=== PATIENT | female | born 1980 | race Caucasian/White ===

== ENCOUNTER 2023-08-30 08:23 | Inpatient (IN) | payer OTHER ==
[~2023-08-30] VITALS: Ht 165.1 cm; Wt 65.3 kg
[~2023-08-30 08:23] MED LIST: COR12 PO; HYDR25TA78 PO; INSU100I28 SQ
[2023-08-30 09:14] LABS: HEMATOCRIT. 26.9 % (36.0-48.0); HEMOGLOBIN. 8.7 g/dL (12.0-16.0); MEAN CORPUSCULAR HEMOGLOBIN 30.3 pg (28.0-32.0); MEAN CORPUSCULAR HGB CONC 32.3 g/dL (31.0-37.0); MEAN CORPUSCULAR VOLUME 93.7 fL (81.0-99.0); MEAN PLATELET VOLUME 9.4 fl (7.4-10.4); PLATELET 208 x1000/uL (130-400); RED BLOOD CELL COUNT 2.87 mill/uL (4.2-5.4); RED CELL DISTRIBUTION WIDTH 15.9 % (11.6-14.6)
[2023-08-30] MEDS: ACETAMINOPHEN 325MG TABLET PO STA (09:18)
[2023-08-30 09:35] LABS: D-DIMER 5.98 mg/L FEU (<0.50); INR 0.9; PROTHROMBIN TIME 10.5 sec (9.6-11.0)
[2023-08-30 09:39] LABS: DIFFERENTIAL COMMENT 1
[2023-08-30 09:59] LABS: HCG SCREEN NEGATIVE
[2023-08-30 10:05] LABS: ALANINE AMINOTRANSFERASE 79 IU/L (10-49); ALBUMIN 3.6 g/dL (3.2-4.8); ASPARTATE AMINOTRANSFERASE 78 IU/L (<34); BILIRUBIN TOTAL 0.2 mg/dL (0.1-1.0); CALCIUM 8.1 mg/dL (8.7-10.4); CARBON DIOXIDE 30 mEq/L (21-32); CHLORIDE 99 mEq/L (98-107); GLUCOSE 198 mg/dL (70-105); POTASSIUM 3.4 mEq/L (3.5-5.1); SODIUM 133 mEq/L (136-145); UREA NITROGEN BLOOD 17 mg/dL (9-23)
[2023-08-30 10:07] LABS: CREATININE 2.3 mg/dL (0.6-1.0)
[2023-08-30 10:09] LABS: TROPONIN I HIGH SENSITIVITY 35 ng/L (3.0-34)
[2023-08-30 10:19] VITALS: RESP 36
[2023-08-30] MEDS ORDERED: NITROGLYCERIN 50MG PREMIX 250 ML IV PRN (11:00)
[2023-08-30 11:09] LABS: PLATELET ESTIMATE NORMAL
[2023-08-30 11:12] LABS: ANISOCYTOSIS 2+
[2023-08-30] MEDS: NITROGLYCERIN 50MG PREMIX 250 ML IV PRN (11:56)
[2023-08-30] MEDS: FUROSEMIDE 40MG/4ML VIAL IVP SCH (12:45)
[2023-08-30] MEDS: ASPIRIN 325MG EC TABLET PO SCH (12:45)
[2023-08-30] MEDS ORDERED: IPRATROPIUM/ALBUTEROL 0.5-3(2.5)MG/3ML NEB HHN PRN (16:00)
[2023-08-30] MEDS: MORPHINE SULFATE 2 MG/ML CPJ (NOT FOR IM USE) IV NR (16:45)
[2023-08-30] MEDS: DIPHENHYDRAMINE 50MG/ML VIAL IV PRN (17:54)
[2023-08-30] MEDS: CLONIDINE 0.1MG TABLET PO PRN (18:15)
[2023-08-31] VITALS (64 sets, daily range): BP systolic 94–168; BP diastolic 56–124; PULSE 70–86; RESP 6–23; TEMP 97.9–100.6
[2023-08-31] MEDS ORDERED: DEXTROSE 50% WATER 50ML SYRINGE IV PRN (00:15)
[2023-08-31 00:35] LABS: TROPONIN I HIGH SENSITIVITY 25 ng/L (3.0-34)
[2023-08-31] MEDS: DIPHENHYDRAMINE 50MG/ML VIAL IV NR (00:37)
[2023-08-31 06:04] LABS: MEAN CORPUSCULAR HEMOGLOBIN 31.5 pg (28.0-32.0); MEAN CORPUSCULAR HGB CONC 33.3 g/dL (31.0-37.0); MEAN CORPUSCULAR VOLUME 94.4 fL (81.0-99.0); MEAN PLATELET VOLUME 9.4 fl (7.4-10.4); PLATELET 202 x1000/uL (130-400); RED BLOOD CELL COUNT 2.18 mill/uL (4.2-5.4); RED CELL DISTRIBUTION WIDTH 15.3 % (11.6-14.6); WHITE BLOOD COUNT 10.4 x1000/uL (4.5-11.0)
[2023-08-31 06:11] LABS: HEMOGLOBIN. 6.9 g/dL (12.0-16.0)
[2023-08-31 06:12] LABS: DIFFERENTIAL COMMENT 1; HEMATOCRIT. 20.6 % (36.0-48.0)
[2023-08-31] MEDS: HYDRALAZINE HCL 100MG TABLET PO SCH (06:20)
[2023-08-31 06:21] LABS: ALANINE AMINOTRANSFERASE 45 IU/L (10-49); ALBUMIN 2.9 g/dL (3.2-4.8); ASPARTATE AMINOTRANSFERASE 32 IU/L (<34); BILIRUBIN TOTAL 0.2 mg/dL (0.1-1.0); CALCIUM 8.1 mg/dL (8.7-10.4); CARBON DIOXIDE 32 mEq/L (21-32); CHLORIDE 99 mEq/L (98-107); CHOLESTEROL 167 mg/dL (<200); GLUCOSE 141 mg/dL (70-105); HDL CHOLESTEROL 65 mg/dL (>65); LDL CHOLESTEROL 59 mg/dL (5-100); PHOSPHORUS 3.4 mg/dL (2.5-4.9); POTASSIUM 3.6 mEq/L (3.5-5.1); PROTEIN TOTAL 6.5 g/dL (6.0-8.3); SODIUM 132 mEq/L (136-145); TRIGLYCERIDE 111 mg/dL (0-150); TROPONIN I HIGH SENSITIVITY 24 ng/L (3.0-34); UREA NITROGEN BLOOD 23 mg/dL (9-23)
[2023-08-31 06:42] LABS: CREATININE 3.2 mg/dL (0.6-1.0)
[2023-08-31] MEDS: BLOOD SUGAR DIAGNOSTIC STRIP TEST SCH (07:50)
[2023-08-31] MEDS: INSULIN LISPRO 100 UNITS/ML SUBCUT SCH (07:51)
[2023-08-31] MEDS: DIPHENHYDRAMINE 50MG/ML VIAL IV PRN (08:27)
[2023-08-31] MEDS: FUROSEMIDE 40MG/4ML VIAL IV SCH (08:27)
[2023-08-31] MEDS: AMLODIPINE 10MG TABLET PO SCH (08:27)
[2023-08-31] MEDS: CARVEDILOL 12.5MG TABLET PO SCH (08:27)
[2023-08-31 09:03] LABS: BG BASE EXCESS 5.4 mmol/L (-2.0-2.0); BG CARBOXYHEMOGLOBIN 0.3 % (0.5-1.5); BG DEOXYHEMOGLOBIN 5.8 % (0.0-5.0); BG FRACTION INSPIRED OXYGEN 36; BG HCO3 ACT 31.5 mmol/L (22.0-26.0); BG METHEMOGLOBIN 0.5 % (0.0-1.5); BG OXYGEN SATURATION 94.2 % (92.0-98.5); BG OXYHEMOGLOBIN 93.4 % (94.0-97.0); BG PCO2 56.7 mmHg (35.0-45.0); BG PH 7.363 (7.350-7.450); BG SAMPLE SITE RIGHT BRACHIAL; BG TOTAL HEMOGLOBIN 7.5 g/dL (12.0-18.0); BG VENT MODE NASAL CANNULA
[2023-08-31 09:56] LABS: ANISOCYTOSIS 1+; PLATELET ESTIMATE NORMAL
[2023-08-31] MEDS: INSULIN GLARGINE 100 UNITS/ML SUBCUT SCH (10:13)
[2023-08-31] MEDS: ACETAMINOPHEN 325MG TABLET PO PRN (10:13)
[2023-08-31] MEDS: NITROGLYCERIN 50MG PREMIX 250 ML IV PRN (11:13)
[2023-08-31 21:04] LABS: HEMATOCRIT 28.4 % (36.0-48.0); HEMOGLOBIN 9.6 g/dL (12.0-16.0); MEAN CORPUSCULAR HEMOGLOBIN 31.1 pg (28.0-32.0); MEAN CORPUSCULAR HGB CONC 33.7 g/dL (31.0-37.0); MEAN CORPUSCULAR VOLUME 92.3 fL (81.0-99.0); PLATELET 214 x1000/uL (130-400); RED BLOOD CELL COUNT 3.08 mill/uL (4.2-5.4); WHITE BLOOD COUNT 10.7 x1000/uL (4.5-11.0)
[2023-09-01] VITALS (95 sets, daily range): BP systolic 103–166; BP diastolic 61–98; PULSE 69–90; RESP 0–32; TEMP 97.9–98.8; O2SAT 98–99
[2023-09-01 05:38] LABS: HEMATOCRIT. 27.2 % (36.0-48.0); HEMOGLOBIN. 8.9 g/dL (12.0-16.0); MEAN CORPUSCULAR HEMOGLOBIN 30.5 pg (28.0-32.0); MEAN CORPUSCULAR HGB CONC 32.7 g/dL (31.0-37.0); MEAN CORPUSCULAR VOLUME 93.1 fL (81.0-99.0); MEAN PLATELET VOLUME 9.4 fl (7.4-10.4); PLATELET 207 x1000/uL (130-400); RED BLOOD CELL COUNT 2.92 mill/uL (4.2-5.4); RED CELL DISTRIBUTION WIDTH 15.7 % (11.6-14.6); WHITE BLOOD COUNT 11.3 x1000/uL (4.5-11.0)
[2023-09-01 05:51] LABS: DIFFERENTIAL COMMENT 1
[2023-09-01 05:57] LABS: CALCIUM 7.8 mg/dL (8.7-10.4); CREATININE 4.1 mg/dL (0.6-1.0); PHOSPHORUS 4.1 mg/dL (2.5-4.9); POTASSIUM 4.2 mEq/L (3.5-5.1)
[2023-09-01 09:19] LABS: ANISOCYTOSIS 1+; PLATELET ESTIMATE NORMAL
[2023-09-01] MEDS ORDERED: NALOXONE HCL 0.4MG/ML VIAL IV PRN (14:45)
[2023-09-01] MEDS: HYDROCODONE/ACETAMINOPHEN 5/325MG TABLET PO PRN (14:54)
[2023-09-01] MEDS: IPRATROPIUM/ALBUTEROL 0.5-3(2.5)MG/3ML NEB HHN SCH (15:35)
[2023-09-01] MEDS: ONDANSETRON HCL 4MG/2ML INJ IV PRN (19:41)
[2023-09-01 22:47] LABS: HEPATITIS A AB IGM NEGATIVE (Negative); HEPATITIS B CORE AB IGM REACTIVE (Negative); HEPATITIS B SURFACE ANTIGEN NEGATIVE (Negative); HEPATITIS C AB NON REACTIVE (Neg) (Negative)
[2023-09-02] VITALS (45 sets, daily range): BP systolic 93–154; BP diastolic 52–96; PULSE 66–84; RESP 7–66; TEMP 97.9–98.1; O2SAT 95–99
[2023-09-02 07:03] LABS: HEMOGLOBIN. 9.7 g/dL (12.0-16.0); MEAN CORPUSCULAR HEMOGLOBIN 31.4 pg (28.0-32.0); MEAN CORPUSCULAR HGB CONC 33.3 g/dL (31.0-37.0); MEAN CORPUSCULAR VOLUME 94.5 fL (81.0-99.0); MEAN PLATELET VOLUME 10.3 fl (7.4-10.4); PLATELET 194 x1000/uL (130-400); RED BLOOD CELL COUNT 3.07 mill/uL (4.2-5.4); WHITE BLOOD COUNT 9.8 x1000/uL (4.5-11.0)
[2023-09-02 07:12] LABS: DIFFERENTIAL COMMENT 1
[2023-09-02 07:21] LABS: CALCIUM 7.9 mg/dL (8.7-10.4); CREATININE 3.2 mg/dL (0.6-1.0); PHOSPHORUS 3.7 mg/dL (2.5-4.9)
[2023-09-02 10:12] LABS: ANISOCYTOSIS 1+; PLATELET ESTIMATE NORMAL
[2023-09-02] MEDS ORDERED: IOHEXOL-350 100 ML BOTTLE ONE (12:22)
[2023-09-03] VITALS (21 sets, daily range): BP systolic 103–156; BP diastolic 52–90; PULSE 79–92; RESP 16–20; TEMP 96.8–98.1; O2SAT 90–98
[2023-09-03 06:59] LABS: HEMATOCRIT. 28.2 % (36.0-48.0); HEMOGLOBIN. 9.4 g/dL (12.0-16.0); MEAN CORPUSCULAR HEMOGLOBIN 31.2 pg (28.0-32.0); MEAN CORPUSCULAR HGB CONC 33.2 g/dL (31.0-37.0); MEAN PLATELET VOLUME 9.2 fl (7.4-10.4); PLATELET 206 x1000/uL (130-400); RED CELL DISTRIBUTION WIDTH 16.3 % (11.6-14.6); WHITE BLOOD COUNT 8.6 x1000/uL (4.5-11.0)
[2023-09-03 07:17] LABS: DIFFERENTIAL COMMENT 1
[2023-09-03 07:26] LABS: CALCIUM 7.8 mg/dL (8.7-10.4); POTASSIUM 4.9 mEq/L (3.5-5.1)
[2023-09-03 07:39] LABS: CREATININE 4.4 mg/dL (0.6-1.0)
[2023-09-03] MEDS ORDERED: NIFE-32 MT (10:36)
[2023-09-03 12:32] LABS: ANISOCYTOSIS 1+; PLATELET ESTIMATE NORMAL
[2023-09-04] VITALS (7 sets, daily range): BP systolic 100–151; BP diastolic 60–81; PULSE 62–92; RESP 16–20; TEMP 96.9–98; O2SAT 98–99
[2023-09-04 07:23] LABS: HEMATOCRIT. 26.8 % (36.0-48.0); MEAN CORPUSCULAR HEMOGLOBIN 31.4 pg (28.0-32.0); MEAN CORPUSCULAR HGB CONC 33.5 g/dL (31.0-37.0); MEAN CORPUSCULAR VOLUME 93.8 fL (81.0-99.0); MEAN PLATELET VOLUME 9.7 fl (7.4-10.4); PLATELET 205 x1000/uL (130-400); RED BLOOD CELL COUNT 2.86 mill/uL (4.2-5.4); RED CELL DISTRIBUTION WIDTH 16.1 % (11.6-14.6); WHITE BLOOD COUNT 9.9 x1000/uL (4.5-11.0)
[2023-09-04 07:49] LABS: CALCIUM 7.8 mg/dL (8.7-10.4); CREATININE 4.3 mg/dL (0.6-1.0); POTASSIUM 4.5 mEq/L (3.5-5.1)
[2023-09-04 08:19] LABS: DIFFERENTIAL COMMENT 1
[2023-09-04 16:54] LABS: PLATELET ESTIMATE NORMAL
== END 2023-09-04 17:45 | disposition home or self-care (01) | DRG 194 ==
LOC: ER 08:23 → EDBEDREQTM 14:09 → EDBEDREQ 14:09 → CVICU 23:51 → 7WST 09-02 12:54
PROVIDERS: ADMIT Internal Medicine; ATTEND Internal Medicine
PROC: 5A09357 Assistance with Respiratory Ventilation, Less than 24 Consecutive Hours, Continuous Positive Airway Pressure (ICD-10-PCS; 2023-08-30)
PROC: 30233N1 Transfusion of Nonautologous Red Blood Cells into Peripheral Vein, Percutaneous Approach (ICD-10-PCS; 2023-08-31)
PROC: 5A1D70Z Performance of Urinary Filtration, Intermittent, Less than 6 Hours Per Day (ICD-10-PCS; principal; 2023-09-01)
PROC: 5A1D70Z Performance of Urinary Filtration, Intermittent, Less than 6 Hours Per Day (ICD-10-PCS; 2023-09-03)
DX: I13.2 Hypertensive heart and chronic kidney disease with heart failure and with stage 5 chronic kidney disease, or end stage renal disease (principal); J96.00 Acute respiratory failure, unspecified whether with hypoxia or hypercapnia; I31.39 Other pericardial effusion (noninflammatory); E87.20 Acidosis, unspecified; D63.8 Anemia in other chronic diseases classified elsewhere; I27.20 Pulmonary hypertension, unspecified; N18.6 End stage renal disease; I16.1 Hypertensive emergency; D72.829 Elevated white blood cell count, unspecified; E11.22 Type 2 diabetes mellitus with diabetic chronic kidney disease; E78.5 Hyperlipidemia, unspecified; J84.9 Interstitial pulmonary disease, unspecified; J98.11 Atelectasis; I08.1 Rheumatic disorders of both mitral and tricuspid valves; E87.5 Hyperkalemia; I50.9 Heart failure, unspecified; Z99.2 Dependence on renal dialysis
CPT/HCPCS: 36415; 36600; 71045; 71275; 76604; 80048; 80053; 80061; 82375; 82805; 82962; 83036; 83605; 83735; 83880; 84100; 84145; 84484; 84703; 85025; 85027; 85379; 86705; 86709; 86850; 86900; 86920; 87340; 90935; 93005; 93970; 94640; 94660; 99291; J1200; J1815; J1940; J2270; J2405; J3490; P9016; Q9967

== ENCOUNTER 2023-10-27 10:48 | Inpatient (IN) | payer OTHER ==
[~2023-10-27] VITALS: Ht 152.4 cm; Wt 63.5 kg
[~2023-10-27 10:48] MED LIST changes: +AMLO5TAB88 MT; +CALC667C PO; -COR12 PO; +DIPH25TA62 PO; +FAMO20TA8 MT; +LOPE2CAP14 PO; +P20 MT
[2023-10-27] MEDS: MORPHINE SULFATE 4 MG/ML INJ (FOR IV/IM USE) IV STA (12:11)
[2023-10-27] MEDS: ONDANSETRON HCL 4MG/2ML INJ IV STA (12:11)
[2023-10-27] MEDS: LABETALOL 5MG/ML 4ML INJ IV ONE (12:33)
[2023-10-27] MEDS: HYDRALAZINE 20MG/ML VIAL IV ONE (12:34)
[2023-10-27 12:53] LABS: BASOPHILS % 1.1 % (0.0-2.0); EOSINOPHILS % 5.7 % (0.0-5.0); HEMATOCRIT. 37.1 % (36.0-48.0); HEMOGLOBIN. 12.3 g/dL (12.0-16.0); LYMPHOCYTES % 7.8 % (20.0-50.0); MEAN CORPUSCULAR HGB CONC 33.2 g/dL (31.0-37.0); MEAN CORPUSCULAR VOLUME 93.2 fL (81.0-99.0); MEAN PLATELET VOLUME 9.2 fl (7.4-10.4); MONOCYTES % 3.6 % (2.0-8.0); NEUTROPHILS % 81.8 % (40.0-76.0); PLATELET 177 x1000/uL (130-400); RED BLOOD CELL COUNT 3.98 mill/uL (4.2-5.4); RED CELL DISTRIBUTION WIDTH 15.3 % (11.6-14.6); WHITE BLOOD COUNT 11.4 x1000/uL (4.5-11.0)
[2023-10-27 12:59] LABS: CARBON DIOXIDE 29 mEq/L (21-32); CHLORIDE 98 mEq/L (98-107); POTASSIUM 3.5 mEq/L (3.5-5.1); SODIUM 134 mEq/L (136-145)
[2023-10-27 13:00] LABS: CALCIUM 9.7 mg/dL (8.7-10.4)
[2023-10-27 13:04] LABS: CREATININE 3.8 mg/dL (0.6-1.0); GLUCOSE 367 mg/dL (70-105); INR 0.9; PARTIAL THROMBOPLASTIN TIME 23.9 sec (23.4-31.0); PROTHROMBIN TIME 10.5 sec (9.6-11.0)
[2023-10-27 13:05] LABS: ETHANOL BLOOD < 10 mg/dL (<10); UREA NITROGEN BLOOD 21 mg/dL (9-23)
[2023-10-27 13:06] LABS: ALANINE AMINOTRANSFERASE 12 IU/L (10-49); ALBUMIN 3.8 g/dL (3.2-4.8); ASPARTATE AMINOTRANSFERASE 19 IU/L (<34); HCG SCREEN NEGATIVE
[2023-10-27 13:07] LABS: BILIRUBIN TOTAL 0.4 mg/dL (0.1-1.0); PROTEIN TOTAL 7.7 g/dL (6.0-8.3)
[2023-10-27 13:16] LABS: TROPONIN I HIGH SENSITIVITY 46 ng/L (3.0-34)
[2023-10-27] MEDS: MORPHINE SULFATE 4 MG/ML INJ (FOR IV/IM USE) IV ONE (13:44)
[2023-10-27] MEDS: ACETAMINOPHEN 1000MG/100ML 100 ML IV ONE (14:05)
[2023-10-27] MEDS: ONDANSETRON HCL 4MG/2ML INJ IV ONE (14:26)
[2023-10-27] MEDS: HYDRALAZINE 20MG/ML VIAL IV NR (15:24)
[2023-10-27 17:40] VITALS: BP 176/100; PULSE 111; RESP 25; TEMP 97.7
[2023-10-27 17:53] VITALS: BP 166/100; PULSE 111; RESP 25; TEMP 97.7
[2023-10-27] MEDS: ONDANSETRON HCL 4MG/2ML INJ IV PRN (18:12)
[2023-10-27] MEDS: HYDRALAZINE 20MG/ML VIAL IV PRN (18:27)
[2023-10-27] MEDS: INSULIN LISPRO 100 UNITS/ML SUBCUT NR (18:45)
[2023-10-27] MEDS: MORPHINE SULFATE 2 MG/ML INJ (NOT FOR IM USE) IV NR ×2 (18:45→23:15)
[2023-10-27 20:00] VITALS: BP 159/86; PULSE 109; RESP 20; TEMP 98.6
[2023-10-27] MEDS: PIPERACILLIN/TAZO 3.375G/50ML 50 ML IV SCH (20:48)
[2023-10-27] MEDS: INSULIN LISPRO 100 UNITS/ML SUBCUT SCH (20:49)
[2023-10-27] MEDS: BLOOD SUGAR DIAGNOSTIC STRIP TEST SCH (20:49)
[2023-10-27] MEDS: INSULIN GLARGINE 100 UNITS/ML SUBCUT SCH (22:50)
[2023-10-28] VITALS (15 sets, daily range): BP systolic 116–180; BP diastolic 72–104; PULSE 72–116; RESP 16–20; TEMP 97.5–99.8
[2023-10-28] MEDS: DEXTROSE 50% WATER 50ML SYRINGE IV PRN (06:20)
[2023-10-28] MEDS: MORPHINE SULFATE 2 MG/ML INJ (NOT FOR IM USE) IV NR (13:30)
[2023-10-28] MEDS: METOCLOPRAMIDE HCL 10MG/2ML VIAL IV SCH (13:30)
[2023-10-28] MEDS: HYDROCODONE/ACETAMINOPHEN 5/325MG TABLET PO PRN (16:28)
[2023-10-28] MEDS: DIPHENHYDRAMINE 50MG/ML VIAL IV PRN (16:42)
[2023-10-28] MEDS: INSULIN GLARGINE 100 UNITS/ML SUBCUT SCH (21:03)
[2023-10-29] VITALS (7 sets, daily range): BP systolic 95–169; BP diastolic 65–112; PULSE 65–111; RESP 18–20; TEMP 98.2–100.1
[2023-10-29 07:56] LABS: CALCIUM 8.6 mg/dL (8.7-10.4); CARBON DIOXIDE 25 mEq/L (21-32); CHLORIDE 102 mEq/L (98-107)
[2023-10-29 07:57] LABS: POTASSIUM 3.9 mEq/L (3.5-5.1); SODIUM 137 mEq/L (136-145)
[2023-10-29 08:01] LABS: CREATININE 3.9 mg/dL (0.6-1.0)
[2023-10-29 08:03] LABS: UREA NITROGEN BLOOD 19 mg/dL (9-23)
[2023-10-29 08:04] LABS: PHOSPHORUS 5.5 mg/dL (2.5-4.9)
[2023-10-29 09:07] LABS: GLUCOSE 46 mg/dL (70-105)
[2023-10-29 10:43] LABS: HEMATOCRIT 32.8 % (36.0-48.0); HEMOGLOBIN 10.5 g/dL (12.0-16.0); MEAN CORPUSCULAR HEMOGLOBIN 30.7 pg (28.0-32.0); MEAN CORPUSCULAR HGB CONC 32.1 g/dL (31.0-37.0); MEAN CORPUSCULAR VOLUME 95.6 fL (81.0-99.0); PLATELET 96 x1000/uL (130-400); RED BLOOD CELL COUNT 3.43 mill/uL (4.2-5.4); RED CELL DISTRIBUTION WIDTH 15.6 % (11.6-14.6); WHITE BLOOD COUNT 7.2 x1000/uL (4.5-11.0)
[2023-10-30] VITALS (15 sets, daily range): BP systolic 95–198; BP diastolic 60–122; PULSE 80–99; RESP 16–20; TEMP 96.4–98.4; O2SAT 98
[2023-10-30 07:18] LABS: CALCIUM 8.4 mg/dL (8.7-10.4)
[2023-10-30 07:23] LABS: CREATININE 4.7 mg/dL (0.6-1.0)
[2023-10-30 07:25] LABS: PHOSPHORUS 5.9 mg/dL (2.5-4.9)
[2023-10-30 08:00] LABS: BASOPHILS % 1.2 % (0.0-2.0); EOSINOPHILS % 13.2 % (0.0-5.0); HEMATOCRIT. 32.2 % (36.0-48.0); HEMOGLOBIN. 10.4 g/dL (12.0-16.0); LYMPHOCYTES % 31.8 % (20.0-50.0); MEAN CORPUSCULAR HEMOGLOBIN 30.5 pg (28.0-32.0); MEAN CORPUSCULAR HGB CONC 32.4 g/dL (31.0-37.0); MEAN PLATELET VOLUME 10.1 fl (7.4-10.4); MONOCYTES % 7.7 % (2.0-8.0); NEUTROPHILS % 46.1 % (40.0-76.0); PLATELET 104 x1000/uL (130-400); RED BLOOD CELL COUNT 3.42 mill/uL (4.2-5.4); RED CELL DISTRIBUTION WIDTH 15.3 % (11.6-14.6)
[2023-10-30] MEDS ORDERED: NALOXONE HCL 0.4MG/ML VIAL IV PRN (11:00)
[2023-10-30] MEDS: NIFEDIPINE XL 60MG TAB PO SCH (11:40)
[2023-10-30] MEDS: ACETAMINOPHEN 325MG TABLET PO PRN (15:23)
[2023-10-31] VITALS: BP 111/72; PULSE 90; RESP 20; TEMP 97.2
[2023-10-31 04:00] VITALS: BP 122/80; RESP 16; TEMP 96
[2023-10-31 06:16] LABS: CALCIUM 8.7 mg/dL (8.7-10.4)
[2023-10-31 06:21] LABS: CREATININE 4.5 mg/dL (0.6-1.0)
[2023-10-31 06:23] LABS: PHOSPHORUS 4.9 mg/dL (2.5-4.9)
[2023-10-31 06:29] LABS: HEMATOCRIT 33.7 % (36.0-48.0); HEMOGLOBIN 10.9 g/dL (12.0-16.0); MEAN CORPUSCULAR HEMOGLOBIN 30.4 pg (28.0-32.0); MEAN CORPUSCULAR HGB CONC 32.3 g/dL (31.0-37.0); PLATELET 136 x1000/uL (130-400); RED BLOOD CELL COUNT 3.59 mill/uL (4.2-5.4); RED CELL DISTRIBUTION WIDTH 15.1 % (11.6-14.6)
[2023-10-31 08:00] VITALS: BP 119/72; PULSE 94; RESP 18; TEMP 98.1
[2023-10-31 12:00] VITALS: BP 124/78; PULSE 95; RESP 18; TEMP 98.2
[2023-10-31 16:00] VITALS: BP 97/61; PULSE 90; RESP 18; TEMP 98.6
[2023-10-31 17:31] VITALS: BP 99/62; PULSE 90; TEMP 98.6; O2SAT 96
== END 2023-10-31 19:20 | disposition home or self-care (01) | DRG 245 ==
LOC: ER 10:48 → EDBEDREQ 12:12 → 8WST 14:04 → EDBEDREQ 14:09
PROVIDERS: ADMIT Internal Medicine; ATTEND Internal Medicine
PROC: 5A1D70Z Performance of Urinary Filtration, Intermittent, Less than 6 Hours Per Day (ICD-10-PCS; principal; 2023-10-28)
PROC: 5A1D70Z Performance of Urinary Filtration, Intermittent, Less than 6 Hours Per Day (ICD-10-PCS; 2023-10-30)
DX: K51.90 Ulcerative colitis, unspecified, without complications (principal); J96.00 Acute respiratory failure, unspecified whether with hypoxia or hypercapnia; I13.2 Hypertensive heart and chronic kidney disease with heart failure and with stage 5 chronic kidney disease, or end stage renal disease; E11.649 Type 2 diabetes mellitus with hypoglycemia without coma; D72.10 Eosinophilia, unspecified; I27.20 Pulmonary hypertension, unspecified; N18.6 End stage renal disease; E83.39 Other disorders of phosphorus metabolism; E87.70 Fluid overload, unspecified; D64.9 Anemia, unspecified; E11.22 Type 2 diabetes mellitus with diabetic chronic kidney disease; I50.9 Heart failure, unspecified; E11.65 Type 2 diabetes mellitus with hyperglycemia; Z99.2 Dependence on renal dialysis; E78.5 Hyperlipidemia, unspecified; I16.0 Hypertensive urgency; Z90.49 Acquired absence of other specified parts of digestive tract
CPT/HCPCS: 36415; 71045; 74176; 80048; 80053; 80320; 82270; 82962; 83036; 83605; 83735; 83880; 84100; 84484; 84703; 85025; 85027; 87015; 87045; 87427; 87449; 89055; 90935; 93005; 99285; C1893; J0360; J1200; J1815; J2270; J2405; J2543; J2765; J3490; G0480; J0131

== ENCOUNTER 2023-11-21 23:09 | Inpatient (IN) | payer OTHER ==
[~2023-11-21] VITALS: Ht 165.1 cm; Wt 64.9 kg
[~2023-11-21 23:09] MED LIST changes: -P20 MT
[2023-11-22] VITALS (22 sets, daily range): BP systolic 137–183; BP diastolic 58–121; PULSE 74–97; RESP 15–48; TEMP 97.4–99.7
[2023-11-22] MEDS: ACETAMINOPHEN 1000MG/100ML 100 ML IV ONE (00:03)
[2023-11-22 00:47] LABS: BG BASE EXCESS -2.1 mmol/L (-2.0-2.0); BG CARBOXYHEMOGLOBIN 0.3 % (0.5-1.5); BG DEOXYHEMOGLOBIN 2.6 % (0.0-5.0); BG FRACTION INSPIRED OXYGEN 40; BG HCO3 ACT 22.4 mmol/L (22.0-26.0); BG METHEMOGLOBIN 0.3 % (0.0-1.5); BG OXYGEN SATURATION 97.4 % (92.0-98.5); BG OXYHEMOGLOBIN 96.8 % (94.0-97.0); BG PH 7.399 (7.350-7.450); BG PO2 91.7 mmHg (75.0-100.0); BG SAMPLE SITE RIGHT RADIAL; BG TOTAL HEMOGLOBIN 12.1 g/dL (12.0-18.0); BG VENT MODE MASK - BIPAP
[2023-11-22 00:51] LABS: BASOPHILS % 1.5 % (0.0-2.0); HEMATOCRIT. 28.6 % (36.0-48.0); HEMOGLOBIN. 9.3 g/dL (12.0-16.0); LYMPHOCYTES % 16.7 % (20.0-50.0); MEAN CORPUSCULAR HEMOGLOBIN 30.6 pg (28.0-32.0); MEAN CORPUSCULAR HGB CONC 32.7 g/dL (31.0-37.0); MEAN CORPUSCULAR VOLUME 93.6 fL (81.0-99.0); MEAN PLATELET VOLUME 9.2 fl (7.4-10.4); MONOCYTES % 7.5 % (2.0-8.0); NEUTROPHILS % 63.3 % (40.0-76.0); PLATELET 239 x1000/uL (130-400); RED BLOOD CELL COUNT 3.05 mill/uL (4.2-5.4); WHITE BLOOD COUNT 9.7 x1000/uL (4.5-11.0)
[2023-11-22 00:59] LABS: CALCIUM 8.8 mg/dL (8.7-10.4); CARBON DIOXIDE 26 mEq/L (21-32)
[2023-11-22 01:04] LABS: GLUCOSE 199 mg/dL (70-105); TROPONIN I HIGH SENSITIVITY 23 ng/L (3.0-34); UREA NITROGEN BLOOD 35 mg/dL (9-23)
[2023-11-22 01:09] LABS: CREATININE 5.3 mg/dL (0.6-1.0); ETHANOL BLOOD < 10 mg/dL (<10)
[2023-11-22 01:39] LABS: CHLORIDE 100 mEq/L (98-107); POTASSIUM 4.9 mEq/L (3.5-5.1); SODIUM 135 mEq/L (136-145)
[2023-11-22] MEDS: HYDRALAZINE 20MG/ML VIAL IV ONE ×2 (01:44→06:11)
[2023-11-22] MEDS: MORPHINE SULFATE 4 MG/ML INJ (FOR IV/IM USE) IV ONE (02:30)
[2023-11-22] MEDS: DIPHENHYDRAMINE 25MG CAPSULE PO ONE (05:41)
[2023-11-22] MEDS: MORPHINE SULFATE 2 MG/ML CPJ (NOT FOR IM USE) IV ONE (06:11)
[2023-11-22] MEDS ORDERED: DEXTROSE 50% WATER 50ML SYRINGE IV PRN (11:00)
[2023-11-22 11:26] LABS: HEPATITIS B SURFACE ANTIGEN NEGATIVE (Negative)
[2023-11-22 11:47] LABS: HEPATITIS A AB IGM NEGATIVE (Negative)
[2023-11-22 11:48] LABS: HEPATITIS B CORE AB IGM REACTIVE (Negative); HEPATITIS C AB NON REACTIVE (Neg) (Negative)
[2023-11-22] MEDS: BLOOD SUGAR DIAGNOSTIC STRIP TEST SCH (12:56)
[2023-11-22] MEDS: INSULIN LISPRO 100 UNITS/ML SUBCUT SCH (12:56)
[2023-11-22] MEDS: ACETAMINOPHEN 325MG TABLET PO PRN (13:54)
[2023-11-22] MEDS: AMLODIPINE 10MG TABLET PO SCH (13:55)
[2023-11-22] MEDS ORDERED: IPRATROPIUM/ALBUTEROL 0.5-3(2.5)MG/3ML NEB HHN PRN (18:00)
[2023-11-22] MEDS: DIPHENHYDRAMINE 50MG CAPSULE PO PRN (18:38)
[2023-11-23] VITALS (12 sets, daily range): BP systolic 124–149; BP diastolic 72–84; PULSE 80–90; RESP 8–26; TEMP 97.6–99.2
[2023-11-23] MEDS: ONDANSETRON HCL 4MG/2ML INJ IV PRN (02:23)
[2023-11-23] MEDS ORDERED: NALOXONE HCL 0.4MG/ML VIAL IV PRN (19:30)
[2023-11-23] MEDS: HYDROCODONE/ACETAMINOPHEN 5/325MG TABLET PO PRN (20:42)
[2023-11-24] VITALS (17 sets, daily range): BP systolic 120–165; BP diastolic 70–95; PULSE 76–93; RESP 10–21; TEMP 97.2–99.3
[2023-11-24 07:22] LABS: HEMATOCRIT. 27.8 % (36.0-48.0); HEMOGLOBIN. 9.1 g/dL (12.0-16.0); MEAN CORPUSCULAR HGB CONC 32.8 g/dL (31.0-37.0); MEAN CORPUSCULAR VOLUME 91.5 fL (81.0-99.0); MEAN PLATELET VOLUME 8.6 fl (7.4-10.4); PLATELET 240 x1000/uL (130-400); RED BLOOD CELL COUNT 3.04 mill/uL (4.2-5.4); RED CELL DISTRIBUTION WIDTH 14.9 % (11.6-14.6); WHITE BLOOD COUNT 8.9 x1000/uL (4.5-11.0)
[2023-11-24 07:27] LABS: DIFFERENTIAL COMMENT 1
[2023-11-24 07:44] LABS: POTASSIUM 4.4 mEq/L (3.5-5.1)
[2023-11-24 07:46] LABS: CALCIUM 8.5 mg/dL (8.7-10.4)
[2023-11-24 08:06] LABS: CREATININE 5.5 mg/dL (0.6-1.0)
[2023-11-24] MEDS ORDERED: IOHEXOL-300 100 ML BOTTLE ONE (20:35)
[2023-11-24 22:28] LABS: PLATELET ESTIMATE NORMAL
[2023-11-25] VITALS (16 sets, daily range): BP systolic 118–163; BP diastolic 71–91; PULSE 75–84; RESP 0–19; TEMP 97.9–98.6
[2023-11-25 06:52] LABS: HEMATOCRIT. 25.3 % (36.0-48.0); HEMOGLOBIN. 8.4 g/dL (12.0-16.0); MEAN CORPUSCULAR HEMOGLOBIN 31.2 pg (28.0-32.0); MEAN CORPUSCULAR HGB CONC 33.3 g/dL (31.0-37.0); MEAN CORPUSCULAR VOLUME 93.6 fL (81.0-99.0); MEAN PLATELET VOLUME 8.6 fl (7.4-10.4); PLATELET 251 x1000/uL (130-400); RED CELL DISTRIBUTION WIDTH 14.9 % (11.6-14.6)
[2023-11-25 06:57] LABS: DIFFERENTIAL COMMENT 1
[2023-11-25 07:11] LABS: CALCIUM 8.4 mg/dL (8.7-10.4); POTASSIUM 4.7 mEq/L (3.5-5.1)
[2023-11-25 07:17] LABS: CREATININE 4.7 mg/dL (0.6-1.0)
[2023-11-25 10:28] LABS: PLATELET ESTIMATE NORMAL
[2023-11-25 10:29] LABS: HCG SCREEN NEGATIVE
[2023-11-25] MEDS: CEFTRIAXONE 1GM/50ML 50 ML IV SCH (12:55)
[2023-11-25 13:03] LABS: BG BASE EXCESS 0.8 mmol/L (-2.0-2.0); BG CARBOXYHEMOGLOBIN 0.3 % (0.5-1.5); BG DEOXYHEMOGLOBIN 16.4 % (0.0-5.0); BG FRACTION INSPIRED OXYGEN 21; BG HCO3 ACT 26.4 mmol/L (22.0-26.0); BG METHEMOGLOBIN 0.4 % (0.0-1.5); BG OXYGEN SATURATION 83.5 % (92.0-98.5); BG OXYHEMOGLOBIN 82.9 % (94.0-97.0); BG PCO2 46.9 mmHg (35.0-45.0); BG PH 7.368 (7.350-7.450); BG PO2 47.6 mmHg (75.0-100.0); BG SAMPLE SITE RIGHT BRACHIAL; BG TOTAL HEMOGLOBIN 8.7 g/dL (12.0-18.0); BG VENT MODE ROOM AIR
[2023-11-26] VITALS: BP 152/88; PULSE 82; RESP 27; TEMP 98.4
[2023-11-26 00:39] LABS: CLARITY URINE TURBID (CLEAR); COLOR URINE YELLOW (YELLOW); GLUCOSE URINE 2+ (NEGATIVE); KETONES URINE NEGATIVE (NEGATIVE); LEUKOCYTE ESTERASE URINE NEGATIVE (NEGATIVE); NITRITE URINE NEGATIVE (NEGATIVE); OCCULT BLOOD URINE TRACE (NEGATIVE); PROTEIN URINE 4+ (NEGATIVE); SPECIFIC GRAVITY URINE 1.045 (1.005-1.030); UROBILINOGEN URINE 0.2 E.U./dL (0.2-1.0)
[2023-11-26 02:16] LABS: BACTERIA URINE 2+; SQUAMOUS EPITHELIAL CELL URINE 3+ /lpf (RARE/1+)
[2023-11-26 08:00] VITALS: BP 130/73; PULSE 82; RESP 20; TEMP 98
[2023-11-26 12:00] VITALS: BP 123/73; PULSE 91; RESP 20; TEMP 97.8
[2023-11-26 16:00] VITALS: BP 127/66; PULSE 87; RESP 18; TEMP 97.6
[2023-11-26] MEDS: FOLIC ACID/VITAMIN B COMP W-C TABLET PO SCH (16:07)
[2023-11-26] MEDS: CALCIUM ACETATE 667MG CAPSULE PO SCH (17:00)
[2023-11-26 20:00] VITALS: BP 121/69; PULSE 83; RESP 20; TEMP 98
[2023-11-27] VITALS (9 sets, daily range): BP systolic 115–148; BP diastolic 70–86; PULSE 77–89; RESP 18–20; TEMP 97–98.2; O2SAT 97
[2023-11-27 07:09] LABS: HEMOGLOBIN. 8.9 g/dL (12.0-16.0); MEAN CORPUSCULAR HEMOGLOBIN 30.1 pg (28.0-32.0); MEAN CORPUSCULAR HGB CONC 33.1 g/dL (31.0-37.0); MEAN CORPUSCULAR VOLUME 91.1 fL (81.0-99.0); MEAN PLATELET VOLUME 8.4 fl (7.4-10.4); PLATELET 268 x1000/uL (130-400); RED BLOOD CELL COUNT 2.97 mill/uL (4.2-5.4); RED CELL DISTRIBUTION WIDTH 15.2 % (11.6-14.6); WHITE BLOOD COUNT 8.5 x1000/uL (4.5-11.0)
[2023-11-27 07:11] LABS: DIFFERENTIAL COMMENT 1
[2023-11-27 07:13] LABS: POTASSIUM 5.4 mEq/L (3.5-5.1)
[2023-11-27 07:14] LABS: CALCIUM 8.8 mg/dL (8.7-10.4)
[2023-11-27 07:23] LABS: CREATININE 5.3 mg/dL (0.6-1.0)
[2023-11-27] MEDS: EPOETIN ALFA 4000UNITS/ML VIAL SUBCUT SCH (17:06)
[2023-11-27 18:31] LABS: PLATELET ESTIMATE NORMAL
== END 2023-11-27 20:45 | disposition home or self-care (01) | DRG 425 ==
LOC: ER 23:09 → 5EST 11-22 01:44 → EDBEDREQ 11-22 02:03 → EDBEDREQTM 11-22 02:03 → 7EST 11-26 01:33
PROVIDERS: ADMIT Internal Medicine; ATTEND Internal Medicine
PROC: 5A1D70Z Performance of Urinary Filtration, Intermittent, Less than 6 Hours Per Day (ICD-10-PCS; principal; 2023-11-22)
PROC: 5A09357 Assistance with Respiratory Ventilation, Less than 24 Consecutive Hours, Continuous Positive Airway Pressure (ICD-10-PCS; 2023-11-22)
PROC: 5A1D70Z Performance of Urinary Filtration, Intermittent, Less than 6 Hours Per Day (ICD-10-PCS; 2023-11-24)
PROC: 5A1D70Z Performance of Urinary Filtration, Intermittent, Less than 6 Hours Per Day (ICD-10-PCS; 2023-11-25)
PROC: 5A1D70Z Performance of Urinary Filtration, Intermittent, Less than 6 Hours Per Day (ICD-10-PCS; 2023-11-27)
PROC: 5A0935A Assistance with Respiratory Ventilation, Less than 24 Consecutive Hours, High Flow/Velocity Cannula (ICD-10-PCS; 2023-11-27)
DX: E87.70 Fluid overload, unspecified (principal); J96.01 Acute respiratory failure with hypoxia; I12.0 Hypertensive chronic kidney disease with stage 5 chronic kidney disease or end stage renal disease; I27.20 Pulmonary hypertension, unspecified; D72.10 Eosinophilia, unspecified; E83.39 Other disorders of phosphorus metabolism; J90 Pleural effusion, not elsewhere classified; N18.6 End stage renal disease; Z99.2 Dependence on renal dialysis; E78.5 Hyperlipidemia, unspecified; D64.9 Anemia, unspecified; J81.1 Chronic pulmonary edema; E11.22 Type 2 diabetes mellitus with diabetic chronic kidney disease; Z91.199 Patient's noncompliance with other medical treatment and regimen due to unspecified reason; Z90.49 Acquired absence of other specified parts of digestive tract
CPT/HCPCS: 36415; 36600; 71045; 71260; 74177; 76700; 80048; 80320; 81003; 82375; 82805; 82962; 83880; 84484; 84703; 85025; 86705; 86709; 87340; 90935; 93005; 94640; 94660; 99285; J0360; J0696; J0885; J1815; J2270; J2405; Q0163; Q9967; G0480; J0131

== ENCOUNTER 2023-12-06 09:15 | Inpatient (IN) | payer OTHER ==
[2023-12-06] VITALS (10 sets, daily range): BP systolic 100–164; BP diastolic 64–98; PULSE 73–95; RESP 18–22; TEMP 97–98.1
[~2023-12-06] VITALS: Ht 157.5 cm; Wt 59.0 kg
[~2023-12-06 09:15] MED LIST changes: -HYDR25TA78 PO
[2023-12-06] MEDS: MORPHINE SULFATE 4 MG/ML INJ (FOR IV/IM USE) IV STA ×2 (09:46→12:02)
[2023-12-06] MEDS: ONDANSETRON HCL 4MG/2ML INJ IV STA (09:46)
[2023-12-06 10:31] LABS: BASOPHILS % 1.3 % (0.0-2.0); EOSINOPHILS % 5.5 % (0.0-5.0); HEMATOCRIT. 27.2 % (36.0-48.0); HEMOGLOBIN. 8.7 g/dL (12.0-16.0); MEAN CORPUSCULAR HEMOGLOBIN 29.2 pg (28.0-32.0); MEAN CORPUSCULAR HGB CONC 32.1 g/dL (31.0-37.0); MEAN CORPUSCULAR VOLUME 90.8 fL (81.0-99.0); MEAN PLATELET VOLUME 8.5 fl (7.4-10.4); MONOCYTES % 7.5 % (2.0-8.0); NEUTROPHILS % 70.7 % (40.0-76.0); PLATELET 341 x1000/uL (130-400); RED CELL DISTRIBUTION WIDTH 15.4 % (11.6-14.6); WHITE BLOOD COUNT 8.5 x1000/uL (4.5-11.0)
[2023-12-06 10:36] LABS: INR 1.1; PROTHROMBIN TIME 12.4 sec (9.6-11.0)
[2023-12-06 10:39] LABS: CARBON DIOXIDE 26 mEq/L (21-32); CHLORIDE 98 mEq/L (98-107); SODIUM 133 mEq/L (136-145)
[2023-12-06 10:40] LABS: CALCIUM 8.6 mg/dL (8.7-10.4)
[2023-12-06 10:45] LABS: CREATININE 4.3 mg/dL (0.6-1.0); GLUCOSE 239 mg/dL (70-105); TROPONIN I HIGH SENSITIVITY 11 ng/L (3.0-34); UREA NITROGEN BLOOD 25 mg/dL (9-23)
[2023-12-06 10:48] LABS: BETA HYDROXYBUTYRATE 0.9 mMol/L (0.0-0.3)
[2023-12-06 13:35] LABS: TROPONIN I HIGH SENSITIVITY 12 ng/L (3.0-34)
[2023-12-06] MEDS: FOLIC ACID/VITAMIN B COMP W-C TABLET PO SCH (15:00)
[2023-12-06] MEDS ORDERED: HYDR50TA40 MT (15:06)
[2023-12-06] MEDS ORDERED: IPRATROPIUM/ALBUTEROL 0.5-3(2.5)MG/3ML NEB HHN PRN (15:30)
[2023-12-06] MEDS ORDERED: CLONIDINE 0.1MG TABLET PO PRN (15:30)
[2023-12-06] MEDS: AMLODIPINE 5MG TABLET PO SCH (16:15)
[2023-12-06] MEDS ORDERED: DEXTROSE 50% WATER 50ML SYRINGE IV PRN (16:15)
[2023-12-06] MEDS: ONDANSETRON HCL 4MG/2ML INJ IV PRN (16:45)
[2023-12-06] MEDS: BLOOD SUGAR DIAGNOSTIC STRIP TEST SCH (17:22)
[2023-12-06] MEDS: CALCIUM ACETATE 667 MG TABLET PO SCH (17:22)
[2023-12-06] MEDS: DIPHENHYDRAMINE 50MG/ML VIAL IV PRN (17:23)
[2023-12-06] MEDS: INSULIN LISPRO 100 UNITS/ML SUBCUT SCH (17:55)
[2023-12-06 18:37] LABS: TROPONIN I HIGH SENSITIVITY 16 ng/L (3.0-34)
[2023-12-06] MEDS: ACETAMINOPHEN 325MG TABLET PO PRN (21:39)
[2023-12-06] MEDS: HYDRALAZINE HCL 25MG TABLET PO SCH (21:40)
[2023-12-06] MEDS: EPOETIN ALFA 4000UNITS/ML VIAL SUBCUT SCH (21:48)
[2023-12-07] VITALS: BP 130/74; PULSE 89; RESP 19; TEMP 98.9
[2023-12-07 04:00] VITALS: BP 158/92; PULSE 86; RESP 20; TEMP 98.9
[2023-12-07 06:19] LABS: POTASSIUM 3.9 mEq/L (3.5-5.1)
[2023-12-07 06:20] LABS: CALCIUM 8.5 mg/dL (8.7-10.4)
[2023-12-07 06:25] LABS: CREATININE 3.1 mg/dL (0.6-1.0)
[2023-12-07 06:32] LABS: BASOPHILS % 0.8 % (0.0-2.0); EOSINOPHILS % 4.1 % (0.0-5.0); HEMATOCRIT. 25.9 % (36.0-48.0); HEMOGLOBIN. 8.2 g/dL (12.0-16.0); LYMPHOCYTES % 13.6 % (20.0-50.0); MEAN CORPUSCULAR HEMOGLOBIN 28.8 pg (28.0-32.0); MEAN CORPUSCULAR HGB CONC 31.8 g/dL (31.0-37.0); MEAN CORPUSCULAR VOLUME 90.4 fL (81.0-99.0); MEAN PLATELET VOLUME 8.6 fl (7.4-10.4); MONOCYTES % 8.8 % (2.0-8.0); NEUTROPHILS % 72.7 % (40.0-76.0); PLATELET 315 x1000/uL (130-400); RED BLOOD CELL COUNT 2.86 mill/uL (4.2-5.4); RED CELL DISTRIBUTION WIDTH 15.4 % (11.6-14.6); WHITE BLOOD COUNT 9.7 x1000/uL (4.5-11.0)
[2023-12-07 08:00] VITALS: BP 158/86; PULSE 89; RESP 20; TEMP 97.6
[2023-12-07 12:00] VITALS: BP 136/73; PULSE 94; RESP 18; TEMP 98.6
[2023-12-07 16:00] VITALS: BP 150/86; PULSE 89; RESP 22; TEMP 97.9
[2023-12-07 21:15] VITALS: BP 122/72; PULSE 82; RESP 20; TEMP 97.7
[2023-12-07] MEDS: ACETAMINOPHEN 325MG TABLET PO PRN (21:43)
[2023-12-08] VITALS (13 sets, daily range): BP systolic 123–166; BP diastolic 72–93; PULSE 74–82; RESP 18–20; TEMP 97.4–98.6; O2SAT 98
[2023-12-08 07:10] LABS: BASOPHILS % 1.1 % (0.0-2.0); HEMATOCRIT. 27.8 % (36.0-48.0); HEMOGLOBIN. 8.7 g/dL (12.0-16.0); LYMPHOCYTES % 20.4 % (20.0-50.0); MEAN CORPUSCULAR HEMOGLOBIN 28.4 pg (28.0-32.0); MEAN CORPUSCULAR HGB CONC 31.3 g/dL (31.0-37.0); MEAN CORPUSCULAR VOLUME 90.8 fL (81.0-99.0); MEAN PLATELET VOLUME 8.7 fl (7.4-10.4); MONOCYTES % 9.5 % (2.0-8.0); PLATELET 327 x1000/uL (130-400); RED BLOOD CELL COUNT 3.07 mill/uL (4.2-5.4); RED CELL DISTRIBUTION WIDTH 15.7 % (11.6-14.6); WHITE BLOOD COUNT 7.4 x1000/uL (4.5-11.0)
[2023-12-08 07:14] LABS: POTASSIUM 4.2 mEq/L (3.5-5.1)
[2023-12-08 07:15] LABS: CALCIUM 9.4 mg/dL (8.7-10.4)
[2023-12-08 08:17] LABS: CREATININE 4.3 mg/dL (0.6-1.0)
[2023-12-08] MEDS: DIPHENHYDRAMINE 25MG CAPSULE PO NR (08:52)
== END 2023-12-08 16:01 | disposition home or self-care (01) | DRG 194 ==
LOC: ER 09:15 → 7WST 11:20 → EDBEDREQTM 11:22 → EDBEDREQ 11:22 → EDBEDREQTM 11:23
PROVIDERS: ADMIT Internal Medicine; ATTEND Internal Medicine
PROC: 5A1D70Z Performance of Urinary Filtration, Intermittent, Less than 6 Hours Per Day (ICD-10-PCS; principal; 2023-12-06)
PROC: 5A1D70Z Performance of Urinary Filtration, Intermittent, Less than 6 Hours Per Day (ICD-10-PCS; 2023-12-08)
DX: I13.2 Hypertensive heart and chronic kidney disease with heart failure and with stage 5 chronic kidney disease, or end stage renal disease (principal); I31.39 Other pericardial effusion (noninflammatory); D72.10 Eosinophilia, unspecified; I27.20 Pulmonary hypertension, unspecified; N18.6 End stage renal disease; E83.39 Other disorders of phosphorus metabolism; D63.8 Anemia in other chronic diseases classified elsewhere; E87.1 Hypo-osmolality and hyponatremia; I50.43 Acute on chronic combined systolic (congestive) and diastolic (congestive) heart failure; K31.84 Gastroparesis; E11.22 Type 2 diabetes mellitus with diabetic chronic kidney disease; E78.5 Hyperlipidemia, unspecified; Z99.2 Dependence on renal dialysis; Z91.148 Patient's other noncompliance with medication regimen for other reason; Z91.158 Patient's noncompliance with renal dialysis for other reason; Z79.899 Other long term (current) drug therapy; Z79.4 Long term (current) use of insulin; J90 Pleural effusion, not elsewhere classified
CPT/HCPCS: 36415; 71045; 80048; 82010; 82803; 82962; 83036; 83735; 83880; 84484; 85025; 90935; 93005; 99285; J0885; J1200; J1815; J2270; J2405; Q0163